=== PATIENT | female | born 1945 | race Caucasian/White ===

== ENCOUNTER 2020-03-01 09:06 | Outpatient (CLI) | payer MEDICARE, OTHER, SELFPAY ==
--- NOTE | ~2020-03-01 | MM_ITS ---
EXAMINATION: MM screening [place] BI w jeet HISTORY: Screening mammogram TECHNIQUE: Craniocaudal and mediolateral oblique 3-D tomosynthesis images were obtained and synthetic 2-D images were generated. CAD analysis was submitted and interpreted. COMPARISON: bilateral digital screening mammogram 09/17/2017 diagnostic left digital mammogram 09/08/2017 bilateral digital screening mammogram BREAST PARENCHYMAL COMPOSITION: There are scattered areas of fibroglandular density. FINDINGS: There is some fat necrosis with associated calcification likely related to prior partial le ft mastectomy for history of breast carcinoma in situ. Numerous benign calcifications are scattered i n each breast. There is no evidence of suspicious mass, calcification, or architectural distortion to suggest malignancy in either breast. There has been no suspicious interval change. IMPRESSION: 1. No mammographic evidence of malignancy. 2. Recommend routine screening mammography in one year. BI-RADS Category 2: Benign finding(s). Reviewed, dictated and finalized at location A.
== END 2020-03-01 09:07 | disposition home or self-care (01) ==
LOC: ANHIMG 09:16
PROVIDERS: PCP Obstetrics & Gynecology
DX: Z12.31 Encounter for screening mammogram for malignant neoplasm of breast (principal)
CPT/HCPCS: 77063; 77067

== ENCOUNTER → 2021-03-19 15:40 | Outpatient (CLI) | payer MEDICARE, OTHER, SELFPAY ==
--- NOTE | ~2021-03-19 | MM_ITS ---
EXAMINATION: MM screening [place] BI w jeet HISTORY: Screening mammogram TECHNIQUE: Craniocaudal and mediolateral oblique 3-D tomosynthesis images were obtained and synthetic 2-D images were generated. CAD analysis was submitted and interpreted. COMPARISON: 03/01/2020, 12/07/2018 bilateral digital screening mammogram examinations BREAST PARENCHYMAL COMPOSITION: The breasts are almost entirely fatty. FINDINGS: Numerous bilateral benign appearing calcifications are again noted. 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 Otherwise there is no evidence of suspicious mass, calcification, or new architectural distortion to suggest malignancy in either breast. There has been no suspicious interval change. IMPRESSION: 1. Status post left partial mastectomy for DCIS. No mammographic evidence of malignancy. 2. Recommend routine screening mammography in one year. BI-RADS Category 2: Benign finding(s). Reviewed, dictated and finalized at location A. IMPRESSION: 1. Status post left partial mastectomy for DCIS. No mammographic evidence of ma lignancy. 2. Recommend routine screening mammography in one year. BI-RADS Category 2: Benign finding(s).
== END ==
PROVIDERS: Visit Provider Obstetrics & Gynecology
DX: Z12.31 Encounter for screening mammogram for malignant neoplasm of breast (principal)
CPT/HCPCS: 77063; 77067

== ENCOUNTER → 2022-01-21 08:53 | Outpatient (CLI) | payer MEDICARE, OTHER, SELFPAY ==
--- NOTE | ~2022-01-21 | US_ITS ---
US breast LT complete DATE: 01/21/2022 09:26 INDICATION: Left breast pain TECHNIQUE: Real-time imaging of the left breast including all 4 quadrants and subareolar area COMPARISON: 03/19/2021, 03/01/2020, 12/07/2018 bilateral screening mammogram examinations FINDINGS: At 1:00 3 cm from the nipple at the area of surgical scar for partial mastectomy is a focal approximately 7 mm wide area of hyperechogenicity with prominent posterior shadowing, corresponding to a mammographic finding of calcification in the upper outer quadrant of the left breast, likely pos toperative scarring. At 12:00 3 cm from the nipple there is a benign appearing 4 x 3.7 x 1.9 mm simple cyst. IMPRESSION: BI-RADS Category 2: Benign findings Recommendation: Routine mammographic screening Reviewed, dictated and finalized at Location A. Reviewed, dictated and finalized at location A.
== END ==
PROVIDERS: Visit Provider Nurse Practitioner Obstetrics & Gynecology
DX: N64.4 Mastodynia (principal); Z78.0 Asymptomatic menopausal state; Z85.3 Personal history of malignant neoplasm of breast
CPT/HCPCS: 76641

== ENCOUNTER → 2022-04-11 10:13 | Outpatient (CLI) | payer MEDICARE, OTHER, SELFPAY ==
--- NOTE | ~2022-04-11 | DEXA_ITS ---
Bone Density Report Name: SHAHID MARSHALL Age: 76 Sex: Female Ethnicity: White Date of : 1945 Indication: postmenopausal; screening for osteoporosis; height loss; inflammatory bowel disease; hysterectomy; Referring Provider: Jaylen, Ruthie Alejandro Study: Bone densitometry was performed. Exam Date: April 11, 2022 Accession number: [id number] Bone Density: Region BMD T-score Z-score Classification AP Spine (L1-L4) 1.065 0.2 2.5 Normal Femoral Neck (Left) 0.825 -0.2 1.8 Normal Total Hip (Left) 1.119 1.5 3.2 Normal Femoral Neck (Right) 0.768 -0.7 1.3 Normal Total Hip (Right) 0.968 0.2 2.0 Normal Total Hip Mean 1.044 0.9 2.6 Normal World Health Organization criteria for BMD impression classify patients as: Normal (T-score at or above -1.0), Osteopenia (T-score between -1.0 and -2.5), or Osteoporosis (T-score at or below -2.5). 10-year Fracture Risk: FRAX not reported because: All T-scores for Spine Total, Hip Total, Femoral Neck at or above -1.0 Previous Exams: Region Exam Age BMD T-score BMD Change BMD Change Date g/cm2 vs Baseline vs Previous AP Spine(L1-L4) 04/11/2022 76 1.065 0.2 -0.216 0.004 06/09/2017 71 1.061 0.1 -0.220 -0.035* 05/17/2015 69 1.096 0.4 -0.185 -0.009 06/09/2012 66 1.105 0.5 -0.176 -0.021 12/14/2007 62 1.126 0.7 -0.155 -0.155 09/17/2002 56 1.281 2.1 Total Hip(Left) 04/11/2022 76 1.119 1.5 0.010 -0.032* 06/09/2017 71 1.151 1.7 0.042 0.026 05/17/2015 69 1.125 1.5 0.016 0.014 06/09/2012 66 1.111 1.4 0.002 -0.037 12/14/2007 62 1.148 1.7 0.039 0.039 09/17/2002 56 1.109 1.4 Total Hip(Right) 04/11/2022 76 0.968 0.2 -0.066 -0.074* 06/09/2017 71 1.042 0.8 0.007 0.015 05/17/2015 69 1.026 0.7 -0.008 0.036 06/09/2012 66 0.991 0.4 -0.044 -0.079 12/14/2007 62 1.070 1.0 0.036 0.036 09/17/2002 56 1.035 0.8 *Denotes significance at 95% confidence level, LSC for AP Spine = 0.022 g/cm2, LSC for Total Hip = 0.027 g/cm2 Clinical Information Provided by Patient: Has used the following medications: Vitamin D Has the following medical conditions: Inflammatory bowel diseases, Hysterectomy, COLITIS Patient maximum height was
--- NOTE | ~2022-04-11 | MM_ITS ---
EXAMINATION: MM screening [place] BI w jeet HISTORY: Screening TECHNIQUE: Craniocaudal and mediolateral oblique 3-D tomosynthesis images were obtained and synthetic 2-D images were generated. CAD analysis was submitted and interpreted. COMPARISON: Comparison to multiple prior studies sequentially, with oldest reviewed study dated 11/2015. BREAST PARENCHYMAL COMPOSITION: There are scattered areas of fibroglandular density. FINDINGS: There are benign bilateral breast calcifications unchanged. There is no evidence of suspici ous mass, calcification, or architectural distortion to suggest malignancy in either breast. There phipps s been no suspicious interval change. IMPRESSION: 1. No mammographic evidence of malignancy. 2. Recommend routine screening mammography in one year. BI-RADS Category 2: Benign finding(s). Reviewed, dictated and finalized at location A.
== END ==
PROVIDERS: Visit Provider Nurse Practitioner Obstetrics & Gynecology
DX: Z12.31 Encounter for screening mammogram for malignant neoplasm of breast (principal); Z78.0 Asymptomatic menopausal state
CPT/HCPCS: 77063; 77067; 77080

== ENCOUNTER 2022-08-10 12:42 | Emergency (ER) | payer MEDICARE, OTHER, SELFPAY ==
--- NOTE | ~2022-08-10 | CT_ITS ---
EXAMINATION: CT cervical spine wo con DATE: 08/10/2022 13:25 INDICATION: Neck pain after fall TECHNIQUE: Computed tomography (CT) of the cervical spine was performed without intravenous contrast. The dose-length product was 348 mGy-cm. Automated exposure control and iterative reconstruction technique were employed. COMPARISON: None FINDINGS: There is disc narrowing at C5-6 with retrolisthesis at this level. There is an old spinous process fracture of C7 with nonunion. Craniovertebral junction is normal. There is multilevel facet a nd uncinate hypertrophy. Odontoid process is normal. Lateral masses normally aligned. Lung apices are normal. No significant paraspinal soft tissue abnormality. No acute fracture or traumatic malalignme nt. No evidence for perched facet. IMPRESSION: 1. No acute fracture. 2: Moderate-severe cervical spondylosis. Reviewed, dictated and finalized at location A.
--- NOTE | ~2022-08-10 | CT_ITS ---
EXAMINATION: CT brain wo con DATE: 08/10/2022 13:24 INDICATION: Ground-level fall. Swelling and bruising. TECHNIQUE: Computed tomography (CT) of the head was performed without intravenous contrast. The dose- length product was 605.33 mGy-cm. Automated exposure control and iterative reconstruction technique w ere employed. COMPARISON: None FINDINGS: There is a left frontal scalp hematoma. Normal brain parenchymal volume for age. No acute i nfarction, intracranial hemorrhage, mass or mass effect. No depressed skull fractures. IMPRESSION: 1. No acute intracranial abnormality. Reviewed, dictated and finalized at location A.
[2022-08-10 12:46] VITALS: BP 152/76; PULSE 100; RESP 14; TEMP 36.9; O2SAT 96
--- NOTE | 2022-08-10 13:04 | ED.HEATRA ---
HPI - Head Injury General Chief complaint: Head Injury Stated complaint: fall, head injury Time Seen by Provider: 08/10/22 12:53 History of Present Illness HPI Narrative: 76-year-old female presents to the emergency room for evaluation of head injury following a mechanical fall from ground-level. Patient states that she stepped on a rock, twisting her ankle which caused her to lose her balance. Patient states that she landed on her knee left elbow and left side of her head. Patient denies any loss of consciousness or altered mental status. Denies nausea vomiting, somnolence, dizziness or headache. Related Data Home Medications Medication Instructions Recorded Confirmed Saccharomyces boulardii 250 mg 10,000 mmu cells PO DAILY 04/25/22 04/25/22 capsule (Digest Probiotic (S.boulardii)) Allergies Allergy/AdvReac Type Severity Reaction Status Date / Time No Known Allergies Allergy Unverified 04/25/22 08:37 Review of Systems Review of Systems: CONSTITUTIONAL: Denies fever, chills, or sweats. EYES: Denies visual changes, redness, or discharge. ENT: Denies rhinorrhea, congestion, sore throat, or otalgia. CARDIOVASCULAR: Denies chest pain, palpitations, or edema. RESPIRATORY: Denies cough or dyspnea. GASTROINTESTINAL: Denies abdominal pain, nausea, vomiting, or diarrhea. GENITOURINARY: Denies dysuria or hematuria. SKIN: Denies rash or itching. MUSCULOSKELETAL: Denies back pain, joint pain, or myalgia. NEUROLOGIC: Denies headache, numbness, dizziness, or weakness. PSYCHIATRIC: Denies anxiety or depression. [facility] Past Medical History Medical History B-cell lymphoma Colitis Diarrhea Left sided colitis Social History Social History Smoking status: Never smoker Alcohol intake: current Substance use: never Gender identity (if verbalized by the patient): Female Exam Narrative: GENERAL: Well-appearing, well-nourished, no physical limitations, and in no acute distress. HEAD: Normocephalic, hematoma to left forehead EYES: Conjunctivae normal, PERRLA and EOMI. CHEST: Clear to auscultation. No respiratory distress. No wheezes rales or rhonchi. HEART: Regular rate and rhythm. No murmur heard. Normal peripheral pulses. BACK: No midline Cervical tenderness, step-offs, bony abnormality; FROM EXTREMITIES: Normal range of motion. No edema. No clubbing or cyanosis SKIN: Warm, dry, no rash. No noted wounds NEURO: No focal deficits. Alert and oriented x3. MAEW. CN's II-XI intact bilaterally, normal gait PSYCH: Cooperative. Normal mood and affect. Course Vital Signs Vital signs: Vital Signs Temperature 36.9 C 08/10/22 12:46 Pulse Rate 100 08/10/22 12:46 Respiratory Rate 14 08/10/22 12:46 Blood Pressure 152/76 H 08/10/22 12:46 Pulse Oximetry 96 08/10/22 12:46 Oxygen Delivery Room Air 08/10/22 12:46 Temperature 36.9 C 08/10/22 12:46 Pulse Rate 100 08/10/22 12:46 Respiratory Rate 14 08/10/22 12:46 Blood Pressure 152/76 H 08/10/22 12:46 Pulse Oximetry 96 08/10/22 12:46 Oxygen Delivery Room Air 08/10/22 12:46 MDM - Head Injury Imaging Data Radiologist's impression: Impressions Head CT 08/10/22 13:27 IMPRESSION: 1. No acute intracranial abnormality. Cervical Spine CT 08/10/22 13:30 IMPRESSION: 1. No acute fracture. 2: Moderate-severe cervical spondylosis. Discharge Plan Discharge Clinical Impression: Closed head injury Patient Disposition: Home, Self-Care Condition: Stable Instructions: Antibiotic Form, Head Injury (ED) Prescriptions: No Action Saccharomyces boulardii [Digest Probiotic (S.boulardii)] 250 mg capsule 10,000 mmu cells PO DAILY balsalazide 750 mg capsule 1,500 mg PO BID 30 Days Qty: 120 11RF Follow-up/Referrals: PHYSICIAN NOT ON STAFF,NONSTAFF [Primary Care Provider] - Ti
== END 2022-08-10 14:03 | disposition home or self-care (01) ==
PROVIDERS: Emergency Provider Nurse Practitioner Family
DX: S09.90XA Unspecified injury of head, initial encounter (principal); C85.10 Unspecified B-cell lymphoma, unspecified site; W01.0XXA Fall on same level from slipping, tripping and stumbling without subsequent striking against object, initial encounter
CPT/HCPCS: 70450; 72125; 99284

== ENCOUNTER → 2023-07-10 09:16 | Outpatient (CLI) | payer MEDICARE, OTHER, SELFPAY ==
--- NOTE | ~2023-07-10 | MM_ITS ---
EXAMINATION: MM screening [place] BI w jeet HISTORY: Screening mammogram TECHNIQUE: Craniocaudal and mediolateral oblique 3-D tomosynthesis images were obtained and synthetic 2-D images were generated. CAD analysis was submitted and interpreted. COMPARISON: 04/11/2022 bilateral screening mammogram 01/21/2022 with complete breast ultrasound 03/19/2021, 04/01/2020 bilateral screening mammogram examinations BREAST PARENCHYMAL COMPOSITION: There are scattered areas of fibroglandular density. FINDINGS: Postoperative change from left partial mastectomy for reported DCIS. There are numerous benign calcifications about both breasts. There is no evidence of suspicious mass, calcification, or architectural distortion to suggest malignancy in either breast. There has been no suspicious interval change. IMPRESSION: 1. Status post left partial mastectomy for DCIS. No mammographic evidence of malignancy. 2. Recommend routine screening mammography in one year. BI-RADS Category 2: Benign finding(s). Reviewed, dictated and finalized at location A. IMPRESSION: 1. Status post left partial mastectomy for DCIS. No mammographic evidence of ma lignancy. 2. Recommend routine screening mammography in one year. BI-RADS Category 2: Benign finding(s).
== END ==
PROVIDERS: Visit Provider Obstetrics & Gynecology
DX: Z12.31 Encounter for screening mammogram for malignant neoplasm of breast (principal); Z90.12 Acquired absence of left breast and nipple; Z85.3 Personal history of malignant neoplasm of breast
CPT/HCPCS: 77063; 77067

== ENCOUNTER 2024-09-13 14:58 | Outpatient (CLI) | payer MEDICARE, SELFPAY ==
--- NOTE | ~2024-09-13 | MM_ITS ---
EXAMINATION: MM screening [facility] BI w jeet HISTORY: Screening TECHNIQUE: Craniocaudal and mediolateral oblique 3-D tomosynthesis images were obtained and synthetic 2-D images were generated. CAD analysis was submitted and interpreted. COMPARISON: Comparison to multiple prior studies sequentially, with oldest reviewed study dated 12/07. BREAST PARENCHYMAL COMPOSITION: Not dense: There are scattered areas of fibroglandular density. FINDINGS: Enlarging masses in the upper outer quadrant of the right breast. There is coarse calcifica tion in the upper outer quadrant of the left breast, consistent with fat necrosis. IMPRESSION: 1. Enlarging right breast masses. 2. Additional mammographic views and possible breast ultrasound are recommended. BI-RADS Category 0: Incomplete: Needs additional imaging evaluation. Reviewed, dictated and finalized at location B. ATRIC PHYSICIAN ASSISTANT IMPRESSION: 1. Enlarging right breast masses. 2. Additional mammographic views and possible breast ultrasound are recommended . BI-RADS Category 0: Incomplete: Needs additional imaging evaluation.
== END 2024-09-13 14:59 | disposition home or self-care (01) ==
PROVIDERS: PCP Obstetrics & Gynecology; Visit Provider Obstetrics & Gynecology
DX: Z12.31 Encounter for screening mammogram for malignant neoplasm of breast (principal); R92.8 Other abnormal and inconclusive findings on diagnostic imaging of breast
CPT/HCPCS: 77063; 77067

== ENCOUNTER 2024-10-04 08:43 | Outpatient (CLI) | payer MEDICARE, OTHER, SELFPAY ==
--- NOTE | ~2024-10-04 | MMUS_ITS ---
EXAMINATION TYPE: MM diagnostic [place] RT w jeet, US breast RT limited COMPARISON: Examination was compared with multiple prior studies performed most recently on 09/13/2024 and dating back to 12/07/2018. REASON FOR STUDY: Enlarging mass described within the upper outer right breast. TECHNIQUE: Right mediolateral oblique and craniocaudal views were obtained digitally with 3-D mammog landon (digital breast tomosynthesis) with CAD. Computer-aided detection was utilized in evaluation of t his examination. Spot compression was also performed. BREAST PARENCHYMAL COMPOSITION:Not Dense. There are scattered areas of fibroglandular density. FINDINGS: Bulky calcifications are redemonstrated within the right breast, stable and benign in appearance. The asymmetry within the upper outer right breast (approximately 10 cm from the nipple) demonstrates fat density, suggestive of an intramammary lymph node. The additional asymmetry centrally within the right breast (approximately 6 cm from the nipple) demon strates a cluster of (likely) cysts for which ultrasound will be performed for confirmation. There is no dominant or spiculated mass, architectural distortion or suspicious micro-calcifications. TECHNIQUE: Sonographic evaluation of the right breast was performed. FINDINGS: There is a heterogenous background echotexture. At the 9:00 position of the right breast approximately 10 cm from the nipple is a reniform shaped foc us of decreased echogenicity consistent with an intramammary lymph node for which no further follow-u p is needed. At the 10:00 position of the right breast approximately 6 cm from the nipple is a mostly well-circums cribed focus of decreased echogenicity without vascularity but demonstrating an echogenic halo for wh ich short-term follow-up is needed. This focus measures 3.8 x 3.6 x 4.0 mm. Sonographic evaluation of the remainder of the right breast demonstrates benign fibroglandular elemen ts without a cystic or solid lesion of concern. IMPRESSION: Intramammary lymph node at the 9:00 position of the right breast for which no further follow-up is ne eded. Indeterminate focus at the 10:00 position of the right breast approximately 6 cm from the nipple for which short-term follow-up ultrasound is recommended. BI-RADS CATEGORY: 3: Probably benign findings RECOMMENDATION: Follow-up in 6 months with a focused right breast ultrasound is recommended. RECOMMENDATION: Reviewed, dictated and finalized at location A. TH CLUB ATTENDANT IMPRESSION: Intramammary lymph node at the 9:00 position of the right breast for which no f urther follow-up is needed. Indeterminate focus at the 10:00 position of the right breast approximately 6 c m from the nipple for which short-term follow-up ultrasound is recommended. BI-RADS CATEGORY: 3: Probably benign findings RECOMMENDATION: Follow-up in 6 months with a focused right breast ultrasound is recommended. RECOMMENDATION:
== END 2024-10-04 08:44 | disposition home or self-care (01) ==
LOC: MICIMG 08:43
PROVIDERS: PCP Obstetrics & Gynecology; Visit Provider Obstetrics & Gynecology
DX: R92.8 Other abnormal and inconclusive findings on diagnostic imaging of breast (principal); N60.81 Other benign mammary dysplasias of right breast; N63.10 Unspecified lump in the right breast, unspecified quadrant
CPT/HCPCS: 76642; 77061; 77065; G0279